=== PATIENT | male | born 1995 | race African-American/Black ===

== ENCOUNTER 2019-05-23 05:45 | Day surgery (SDC) | payer OTHER ==
[~2019-05-23] VITALS: Ht 190.5 cm; Wt 77.7 kg
[2019-05-23 07:00] LABS: HEMATOCRIT 39.7 % (42.0-54.0); HEMOGLOBIN 13.8 g/dL (13.5-17.5); MCH 29.2 pg (26.0-34.0); MCHC 34.8 g/dL (31.0-37.0); MCV 84.1 fL (80.0-100.0); MEAN PLATELET VOLUME 9.9 fL (7.4-10.4); RBC 4.72 10x6/uL (4.20-6.10); RDW 12.6 % (11.5-14.5); WBC 4.1 10x3/uL (4.8-10.8)
[2019-05-23 07:10] LABS: CALC OSMOLALITY 283 mosm/kg (275-300); CALCIUM 8.8 mg/dL (8.5-10.1); CARBON DIOXIDE 29.5 mmol/L (21.0-32.0); CHLORIDE - SERUM 107 mmol/L (98-107); GLUCOSE 86 mg/dL (74-106); POTASSIUM - SERUM 4.1 mmol/L (3.5-5.1); SODIUM 143 mmol/L (136-145); UREA NITROGEN 12 mg/dL (7-18); eGFR NON AFRICAN AMERICAN > 90 mL/min (90-120)
[2019-05-23 07:28] VITALS: BP 155/83; Ht 190.5 cm; Wt 77.7 kg
--- NOTE | 2019-05-23 12:40 | NUR ---
DISCHARGE INSTRUCTIONS AND PAPERWORK PROVIDED, IV DC'D WITH TIP INTACT.
--- NOTE | 2019-05-23 16:38 | OP ---
PATIENT NAME: CESIA NOLASCO MEDICAL RECORD: [id number] LOCATION:[facility] ADMISSION DATE: SURGEON: NEETU MONTIEL MD DATE OF OPERATION: 05/23/2019 PREOPERATIVE DIAGNOSES: Symptomatic huge bilateral ear keloids. The one is a 10 cm keloid, the other is an 8 cm keloid. They comprised the entire lower one-third of each ear. POSTOPERATIVE DIAGNOSES: Symptomatic huge bilateral ear keloids. The one is a 10 cm keloid, the other is an 8 cm keloid. They comprised the entire lower one-third of each ear. PROCEDURE: Excision of huge bilateral symptomatic keloids with a complex closure including creation of flaps. SURGEON: Neetu Montiel MD DISTRICT TRAFFIC CHIEF: None. BLOOD LOSS: 100 cc. ANESTHESIA: General. COMPLICATIONS: None. The risks, possible complications and alternatives to the procedure were explained to the patient. He elects to proceed. The discussion specifically included, but was not limited to, bleeding requiring emergency reoperation, infection, wound dehiscence. We also discussed the probability of recurrent keloids. OPERATIVE COURSE: The patient was conveyed to the operating room electively on 05/23/2019. General anesthesia was induced by anesthesia staff. The left ear was sterilely prepped and draped. I excised the keloid with a margin of normal tissue around it. This included a good portion of the cartilaginous portion of the lower ear. I excised some of cartilage to shorten it up, so that it did not stick out further than the skin excision site. Neither keloid affected the external auditory canal. I had to excise some tissue anterior to the ear and somewhat cephalad in order to allow for rotation of the helix down so that it could be sutured to the side of the face. This would leave the patient without any ear lobe. Subcutaneous flaps were created on the inferior aspect of the excision site on the face. These flaps were created sharply. I then sutured the cartilage of the helix of the ear to the side of the face with interrupted 2-0 Vicryls. The posterior skin closure was accomplished with multiple interrupted horizontal mattress 3-0 Vicryls. The anterior subcutaneous closure was approximated with interrupted 3-0 Vicryl sutures. The skin closure anteriorly was closed with a running horizontal mattress 4-0 nylon. Sterile dressings were applied. My attention was turned to the right side. A very similar operation was performed there. It was almost identical to the one on the left. The excision OPERATIVE REPORT [id number] CESIA NOLASCO was a little closer to the external auditory canal than on the left. Also rotating the helix of the ear down and sewing it to the side of the face, there was more tension on the right side than it was on the left side. Sterile dressings were applied after Dermabond had been applied along both the suture lines. The patient was then extubated and conveyed to post-anesthesia care unit where he was in stable condition. He will be dismissed back to the [facility]. I will need to see him in my office in 4 weeks or on rounds out at the [facility]. He will require some analgesia as well as antibiotics for a few days as he will be at a risk for chondritis. TRANSINT:[id number] Voice Confirmation ID: [id number] DOCUMENT ID: [id number] NEETU MONTIEL MD at 1638 CC: BETZAIDA [address] DR. [id number] DICTATION DATE: 05/23/19 1049 SHOP DIRECTOR: 05/23/19 1124 [facility] 05/23/19 [place] [id number] [place] [id number]
== END 2019-05-23 12:45 ==
LOC: D.OPS 05:45
PROVIDERS: Anesthesiology; ATTEND Surgery
DX: L91.0 Hypertrophic scar (principal)